=== PATIENT | female | born 1940 | race African-American/Black ===

== ENCOUNTER 2017-01-05 19:32 | Emergency (ER) | payer MEDICARE, MEDICAID ==
--- NOTE | 2017-01-05 19:56 | ED Physician Chart ---
Chief Complaint/HPI - Patient Information Date Seen:: 01/05/17 Time Seen:: 19:50 Chief Complaint:: peg tube problem History of Present Illness:: pt reportedly pulled out her peg tube this am. peg was replaced w snow by staff to maintain the tract open. Pt is unable to give any hx due to hx of anoxic brain injury and chronic mental defecit. case dw dr naidu - he is ok w ed replacing g-tube. He is unaware of any other acute issues that need acute mgt. Allergies:: Allergies Allergy/AdvReac Type Severity Reaction Status Date / Time Iodine and Iodide Containing Allergy Verified 01/05/17 19:36 Produc povidone-iodine Allergy Verified 01/05/17 19:36 [From Betadine] soap [From Betadine] Allergy Verified 01/05/17 19:36 Vitals:: Vital Signs - 8 hr 01/05/17 19:44 HR 79 O2 Sat % 100 Historian:: EMS, Medical Records Review:: Transfer documents Reviewed, Patient unable to respond Review of Systems - Review of Systems General/Constitutional: No fever, No chills, No weight loss, No weakness, No diaphoresis, No edema, No loss of appetite Skin: No skin lesions, No rash, No bruising Head: No headache, No light-headedness Eyes: No loss of vision, No pain, No diplopia ENT: No earache, No nasal drainage, No sore throat, No tinnitus Neck: No neck pain, No swelling, No thyromegaly, No stiffness, No mass noted Cardio Vascular: No chest pain, No palpitations, No PND, No orthopnea, No edema Pulmonary: No SOB, No cough, No sputum, No wheezing GI: No nausea, No vomiting, No diarrhea, No pain, No melena, No hematochezia, No constipation, No hematemesis G/U: No dysuria, No frequency, No hematuria Musculoskeletal: No bone or joint pain, No back pain, No muscle pain Endocrine: No polyuria, No polydipsia Psychiatric: No prior psych history, No depression, No anxiety, No suicidal ideation Hematopoietic: No bruising, No lymphadenopathy Allergic/Immuno: No urticaria, No angioedema Neurological: No syncope, No focal symptoms, No weakness, No paresthesia, No headache, No seizure, No dizziness, No confusion, No vertigo Past Medical History - Past Medical History Past Medical History: HTN, CAD, Asthma/COPD, PUD/GERD, Seizures, Thyroid disorder, Dementia, Other (blind rt eye(s/p enucliated), cerebral palsey,dvt) Social History: Care Facility Surgical History: PEG/GTube, other (trach) Medication: Reviewed Family Medical History - Family Member Mother History Unknown: Yes Physical Exam - Physical Examination General/Constitutional: Awake, Well-developed, well-nourished, No distress, Non- toxic appearing Other Gen/Cons comments:: nonverbal pt. chronically debilitated. wn/wh. Head: Atraumatic Eyes: Lids, conjuctiva normal Other Eyes comments:: enucliated rt eye. Skin: Nl inspection, No rash, No skin lesions, No ecchymosis, Well hydrated, No lymphadenopathy ENMT: External ears, nose nl, Nasal exam nl, Lips, teeth, gums nl Other ENMT comments:: trach site ok. breathing ok on vent Neck: Nontender, Full ROM w/o pain, No JVD, No nuchal rigidity, No bruit, No mass, No stridor Respiratory: Nl effort/Exclusion, Clear to Auscultation, No Wheeze/Rhonchi/Rales Cardio Vascular: RRR, No murmur, gallop, rubs, NL S1 S2 GI: No tenderness/rebounding/guarding, No organomegaly, No hernia, Normal BS's, Nondistended, No mass/bruits, No McBurney tenderness Other GI comments:: peg site has been ripped to 2.5 cm diameter w uneven(not round orifice now) ..seepage from around peg notable. skin to 2 inch around orifice is reddened and warm. (see procedure note re change of peg tube) : No CVA tenderness Extremities: No tenderness or effusion, Full ROM, normal strength in all extremities, No edema, Normal digits & nails Neuro/Psych: DTR's symmetric, Normal sensory exam, Normal motor strength, Mood normal, No focal deficits Misc: normal gait, Normal back, No paraspinal tenderness Assessment - Procedures Procedures:: peg tube replaced. old peg removed. noniodine skin cleanser used. gel to orifice. peg tube #18 replaced into gastrostomy (gastrograffin inj in peg tube for xray confirmation) Informed Consent: Procedure/risk/benefits explained by MD: Yes (implied/ nonverbal pt) ED Septic Shock - . Is Septic Shock (SBP<90, OR Lactate>4 mmol\L) present?: No - <6hrs of presentation: Vital Signs: Vital Signs - 8 hr 01/05/17 19:44 HR 79 O2 Sat % 100 Reassessment (Disposition) - Reassessment Reassessment:: case dw dr naidu ...advise admit for abx for peg site cellulitis and gi/sx consult for revision of peg site since seepage unavoidable w current wide gastrostomy orifice. Reassessment Condition:: Improved - Diagnosis Diagnosis:: 1 admit for cellulitis at peg site and for sx revision of peg site since seepage unavoidable w current wide gastrostomy orifice. - Patient Disposition Admitted to:: ICU Condition at Disposition:: Unchanged
[2017-01-05] MEDS ORDERED: Diatrizoate Meglumine/Diatri 30 mL Sol ONE (20:27)
[2017-01-06] MEDS ORDERED: Chlorhexidine Gluconate 0.12% 15mL Mouthwash MM SCH (08:00)
--- NOTE | 2017-01-06 11:00 | Diagnostic Imaging Report ---
KUB abdominal film (with radiopaque contrast instilled through gastrostomy tube) HISTORY: Gastrostomy tube placement The exam demonstrates radiopaque contrast within the gastric lumen. IMPRESSION: 1. Confirmation of gastrostomy tube within the gastric lumen.
== END 2017-01-05 21:15 | disposition home or self-care (01) ==
LOC: ER 19:32
DX: Z43.1 Encounter for attention to gastrostomy (principal); I10 Essential (primary) hypertension; I25.10 Atherosclerotic heart disease of native coronary artery without angina pectoris; J44.9 Chronic obstructive pulmonary disease, unspecified; J45.909 Unspecified asthma, uncomplicated; K21.9 Gastro-esophageal reflux disease without esophagitis; E07.9 Disorder of thyroid, unspecified; Z91.041 Radiographic dye allergy status; Z91.09 Other allergy status, other than to drugs and biological substances; Z93.1 Gastrostomy status
CPT/HCPCS: 74000-TC; 94002; Z7502; Z7610